=== PATIENT | female | born 1965 | race Caucasian/White ===

== ENCOUNTER 2016-02-26 21:17 | Emergency (ER) | payer MEDICAID ==
--- NOTE | 2016-02-26 21:48 | Emergency Department Record ---
History of Present Illness - General Chief Complaint: Shortness of breath Stated Complaint: COUGH, CONGESTION LUANA Time Seen by Provider: 02/26/16 21:43 Source: Patient Mode of Arrival: Ambulatory Limitations: No limitations - History of Present Illness Initial Comments: 50 yo female presents to ED with a CC of cough and congestion symptoms for the past several days. Patient reports recent sinus congestion symptoms, and was started on Augmentin 2-3 days ago. Patient reports intermittent fevers, chills , and body aches. Patient denies health problems at her baseline. MD Complaint: Cough Onset/Timin -: Days(s) Severity: Moderate Severity scale (1-10): 5 Quality: Dull Consistency: Constant Improves With: Nothing Worsens With: Nothing Context: Recent illness Associated Symptoms: Fever Treatments Prior to Arrival: None - Related Data Home Oxygen Therapy: No Home Medications Medication Instructions Recorded Confirmed Last Taken Bupropion HCl 150 mg PO DAILY 10/18/13 02/26/16 Unknown Bupropion HCl [Bupropion Xl] 300 mg PO DAILY 10/18/13 02/26/16 Unknown Fluoxetine HCl [Fluoxetine HCl] 30 mg PO DAILY 10/18/13 02/26/16 Unknown Pantoprazole Sodium [Protonix] 40 mg PO DAILY 10/18/13 02/26/16 Unknown Zolpidem Tartrate [Zolpidem 10 mg PO QHS 10/18/13 02/26/16 Unknown Tartrate] Melatonin 5 mg PO QHS tab 09/08/15 02/26/16 Unknown Allergies Allergy/AdvReac Type Severity Reaction Status Date / Time Sulfa (Sulfonamide Allergy Intermediate HIVES Unverified 02/23/16 13:11 Antibiotics) hydromorphone HCl AdvReac Intermediate NAUSEA AND Unverified 02/23/16 13:11 [From Dilaudid] VOMITING Travel Screening - Travel/Exposure Within Last 30 Days Have you traveled within the last 30 days?: No Review of Systems Constitutional: Reports: Chills, Fever, Malaise, Weakness. Denies: Night sweats Eyes: Denies: Eye discharge, Eye pain ENT: Reports: Congestion. Denies: Ear pain, Epistaxis Respiratory: Reports: Cough. Denies: Dyspnea, Stridor Cardiovascular: Denies: Chest pain, Dyspnea on exertion Endocrine: Denies: Fatigue, Heat or cold intolerance Gastrointestinal: Denies: Abdominal pain, Nausea, Vomiting Genitourinary: Denies: Dysuria, Frequency, Hematuria, Incontinence Musculoskeletal: Reports: Myalgia. Denies: Arthralgia, Back pain, Gout Skin: Denies: Bruising, Change in color Neurological: Denies: Abnormal gait, Confusion, Headache, Seizure Psychiatric: Denies: Anxiety Hematological/Lymphatic: Denies: Anemia, Blood Clots Past Medical History - SOCIAL HISTORY Smoking Status: Never smoker Alcohol Use: None Drug Use: None - RESPIRATORY Hx Respiratory Disorders: No - CARDIOVASCULAR Hx Cardio Disorders: No - NEURO Hx Neuro Disorders: Yes Hx Dizziness: Yes Hx Headaches: Yes (migraines) - GI Hx GI Disorders: No - Hx Genitourinary Disorders: No - ENDOCRINE Hx Endocrine Disorders: No - MUSCULOSKELETAL Hx Musculoskeletal Disorders: No - PSYCH Hx Psych Problems: Yes Hx Anxiety: Yes Hx Depression: Yes - HEMATOLOGY/ONCOLOGY Hx Hematology/Oncology Disorders: No Family Medical History Any Significant Family History?: No Physical Exam - General General Appearance: Alert, Oriented x3, Cooperative, No acute distress Limitations: No limitations - Head Head exam: Atraumatic, Normocephalic, Normal inspection Head exam detail: negative: Abrasion, Contusion, Schneider's sign, General tenderness, Hematoma, Laceration - Eye Eye exam: Normal appearance. negative: Conjunctival injection, Periorbital swelling, Periorbital tenderness, Scleral icterus - ENT Ear exam: negative: Auricular hematoma, Auricular trauma Nasal Exam: negative: Active bleeding, Discharge, Dried blood, Foreign body Mouth exam: negative: Drooling, Laceration, Muffled voice, Tongue elevation - Neck Neck exam: Normal inspection. negative: Meningismus, Tenderness - Respiratory Respiratory exam: Normal lung sounds bilaterally. negative: Respiratory distress, Rhonchi, Stridor, Wheezes - Cardiovascular Cardiovascular Exam: Regular rate, Normal rhythm, Normal heart sounds - GI/Abdominal GI/Abdominal exam: Soft. negative: Pulsatile mass, Rebound, Rigid, Tenderness - Rectal Rectal exam: Deferred - exam: Deferred - Extremities Extremities exam: Normal inspection. negative: Calf tenderness, Pedal edema, Tenderness - Back Back exam: Reports: Normal inspection. Denies: CVA tenderness (R), CVA tenderness (L) - Neurological Neurological exam: Alert, Normal gait, Oriented X3 - Psychiatric Psychiatric exam: Normal affect, Normal mood - Skin Skin exam: Normal color. negative: Abrasion Type of lesion: negative: abrasion Course Vital Signs 02/26/16 21:25 Temperature 97.8 F Pulse Rate 75 Respiratory 18 Rate Blood Pressure 150/97 Pulse Ox 95 - Reevaluation(s) Reevaluation #1: 02/26/16 22:14 CXR: No acute process Influenza is negative. Patient and her significant other were updated on all results, will administer Toradol IM for the patient's body aches. Patient was encouraged to continue the Augmentin that she is taking and to take Motrin 600 mg every 6 hours for her body aches. Patient appears stable for discharge at this time. Disposition Disposition: Discharge Clinical Impression: Upper respiratory tract infection Qualifiers: URI type: unspecified viral URI Qualified Code(s): J06.9 - Acute upper respiratory infection, unspecified; B97.89 - Other viral agents as the cause of diseases classified elsewhere Disposition: Home, Self-Care Condition: (2) Stable Instructions: Upper Respiratory Infection (ED) Additional Instructions: Return to ED if your symptoms worsen or if you have any concerns. Follow-up with your family doctor in 3-5 days as directed. Forms: Patient Portal Access Time of Disposition: :17
[2016-02-26 22:02] LABS: INFLUENZA A NEGATIVE (NEGATIVE); INFLUENZA B NEGATIVE (NEGATIVE)
[2016-02-26] MEDS ORDERED: KETOROLAC 60 MG/2 ML VIAL IM STA (22:13)
--- NOTE | 2016-03-01 08:33 | RADIOLOGY REPORT ---
EXAM: CHEST, TWO VIEWS HISTORY: FEVER, ACUTE NONPRODUCTIVE COUGH, RIGHT SIDE CHEST PAIN. TECHNIQUE: Two views of the chest were obtained. Comparison: Chest x-ray 07/20/07. FINDINGS: Fine linear scar left base. The lungs are clear. The cardiomediastinal silhouette, diaphragm, and osseous structures are unremarkable for age. IMPRESSION: NEGATIVE CHEST EXAMINATION. JOB NUMBER: [id number] MTDD
== END 2016-02-26 22:32 | disposition home or self-care (01) ==
LOC: ER 21:17
DX: J06.9 Acute upper respiratory infection, unspecified (principal); B97.89 Other viral agents as the cause of diseases classified elsewhere; R06.02 Shortness of breath; R05 Cough; R52 Pain, unspecified
CPT/HCPCS: 71020; 87400; 96372; 99283; 99284; J1885

== ENCOUNTER 2016-03-02 17:27 | Emergency (ER) | payer MEDICAID ==
--- NOTE | 2016-03-02 17:59 | Emergency Department Record ---
History of Present Illness - General Chief Complaint: Difficulty Breathing Stated Complaint: LUANA,FAINT Time Seen by Provider: 03/02/16 17:51 Source: Patient, RN notes reviewed Mode of Arrival: Wheelchair - History of Present Illness Initial Comments: cough and short of breath worse than 3 days ago and she is on augmentin BID for three days and no fever and she has chilles. patient seen here three days ago and chest xray neg and started on augmentin , influ neg. MD Complaint: Cough Onset/Timin -: Days(s) Severity: Moderate Improves With: Nothing Worsens With: Nothing Associated Symptoms: Cough Treatments Prior to Arrival: Other - Related Data Home Oxygen Therapy: No Home Medications Medication Instructions Recorded Confirmed Last Taken Bupropion HCl 150 mg PO DAILY 10/18/13 03/02/16 03/02/16 Bupropion HCl [Bupropion Xl] 300 mg PO DAILY 10/18/13 03/02/16 03/02/16 Fluoxetine HCl [Fluoxetine HCl] 30 mg PO DAILY 10/18/13 03/02/16 03/02/16 Pantoprazole Sodium [Protonix] 40 mg PO DAILY 10/18/13 03/02/16 03/02/16 Zolpidem Tartrate [Zolpidem 10 mg PO QHS 10/18/13 03/02/16 03/02/16 Tartrate] Melatonin 5 mg PO QHS tab 09/08/15 03/02/16 03/02/16 Previous Rx's Medication Instructions Recorded Albuterol Sulfate [Proair Hfa] 1 - 2 puff IH .EVERY 4-6 HOURS PRN 03/02/16 #1 inhaler Allergies Allergy/AdvReac Type Severity Reaction Status Date / Time Sulfa (Sulfonamide Allergy Intermediate HIVES Verified 03/02/16 17:41 Antibiotics) hydromorphone HCl AdvReac Intermediate NAUSEA AND Verified 03/02/16 17:41 [From Dilaudid] VOMITING Travel Screening - Travel/Exposure Within Last 30 Days Have you traveled within the last 30 days?: No Review of Systems Reviewed: No additional complaints except as noted below Constitutional: Reports: As per HPI, Chills. Denies: Fever, Malaise, Night sweats, Weakness, Weight change Eyes: Reports: As per HPI. Denies: Eye discharge, Eye pain, Photophobia, Vision change ENT: Reports: As per HPI, Congestion. Denies: Dental pain, Ear pain, Epistaxis , Hearing loss, Throat pain Respiratory: Reports: As per HPI, Cough. Denies: Dyspnea, Hemoptysis, Stridor, Wheezes Cardiovascular: Reports: As per HPI. Denies: Arrhythmia, Chest pain, Dyspnea on exertion, Edema, Murmurs, Orthopnea, Palpitations, Paroxysmal nocturnal dyspnea, Rheumatic Fever, Syncope Endocrine: Reports: As per HPI. Denies: Fatigue, Heat or cold intolerance, Polydipsia, Polyuria Gastrointestinal: Reports: As per HPI. Denies: Abdominal pain, Constipation, Diarrhea, Hematemesis, Hematochezia, Melena, Nausea, Vomiting Genitourinary: Reports: As per HPI. Denies: Abnormal menses, Discharge, Dyspareunia, Dysuria, Frequency, Hematuria, Incontinence, Retention, Urgency Musculoskeletal: Reports: As per HPI. Denies: Arthralgia, Back pain, Gout, Joint swelling, Myalgia, Neck pain Skin: Reports: As per HPI. Denies: Bruising, Change in color, Change in hair/ nails, Lesions, Pruritus, Rash Neurological: Reports: As per HPI. Denies: Abnormal gait, Confusion, Headache, Numbness, Paresthesias, Seizure, Tingling, Tremors, Vertigo, Weakness Psychiatric: Reports: As per HPI. Denies: Anxiety, Auditory hallucinations, Depression, Homicidal thoughts, Suicidal thoughts, Visual hallucinations Hematological/Lymphatic: Reports: As per HPI. Denies: Anemia, Blood Clots, Easy bleeding, Easy bruising, Swollen glands Past Medical History - SOCIAL HISTORY Smoking Status: Never smoker Alcohol Use: None Drug Use: None - RESPIRATORY Hx Respiratory Disorders: Yes Hx Bronchitis: Yes Hx Pneumonia: Yes - CARDIOVASCULAR Hx Cardio Disorders: No - NEURO Hx Neuro Disorders: Yes Hx Dizziness: Yes Hx Headaches: Yes (migraines) - GI Hx GI Disorders: No - Hx Genitourinary Disorders: No - ENDOCRINE Hx Endocrine Disorders: No - MUSCULOSKELETAL Hx Musculoskeletal Disorders: No - PSYCH Hx Psych Problems: Yes Hx Anxiety: Yes Hx Depression: Yes - HEMATOLOGY/ONCOLOGY Hx Hematology/Oncology Disorders: No Family Medical History Any Significant Family History?: No Physical Exam - General General Appearance: Alert, Oriented x3, Cooperative, No acute distress - Head Head exam: Normal inspection - Eye Eye exam: Normal appearance, PERRL Pupils: Normal accommodation - ENT ENT exam: Normal exam, Mucous membranes moist, Normal external ear exam, Normal orophraynx, TM's normal bilaterally Ear exam: Normal external inspection. negative: External canal tenderness Nasal Exam: Normal inspection. negative: Discharge, Sinus tenderness Mouth exam: Normal external inspection, Tongue normal Teeth exam: Normal inspection. negative: Dental caries Throat exam: Normal inspection. negative: Tonsillar erythema, Tonsillar exudate - Neck Neck exam: Normal inspection, Full ROM. negative: Tenderness - Respiratory Respiratory exam: Normal lung sounds bilaterally, Other (wheezey cough). negative: Respiratory distress - Cardiovascular Cardiovascular Exam: Regular rate, Normal rhythm, Normal heart sounds - GI/Abdominal GI/Abdominal exam: Soft, Normal bowel sounds. negative: Tenderness - Rectal Rectal exam: Deferred - exam: Deferred - Extremities Extremities exam: Normal inspection, Full ROM, Normal capillary refill. negative: Tenderness - Back Back exam: Reports: Normal inspection, Full ROM. Denies: Muscle spasm, Rash noted, Tenderness - Neurological Neurological exam: Alert, Normal gait, Oriented X3, Reflexes normal - Psychiatric Psychiatric exam: Normal affect, Normal mood - Skin Skin exam: Dry, Intact, Normal color, Warm Course Vital Signs 03/02/16 17:37 Temperature 97.8 F Pulse Rate 76 Respiratory 20 Rate Blood Pressure 144/88 Pulse Ox 95 Medical Decision Making - Data Complexity MDM Data: Labs Ordered and/or Reviewed, X-Ray Ordered and/or Reviewed (neg chestnxray) - Lab Data Result diagrams: 03/02/16 17:50 03/02/16 17:50 Disposition Clinical Impression: Bronchitis Disposition: Home, Self-Care Condition: (1) Good Instructions: Acute Bronchitis (ED) Additional Instructions: robitussin DM 10 ml every 4 hours Prescriptions: Albuterol Sulfate [Proair Hfa] 1 - 2 puff IH .EVERY 4-6 HOURS PRN #1 inhaler PRN Reason: Difficulty In Breathing Forms: Patient Portal Access Time of Disposition: 18:52
[2016-03-02] MEDS ORDERED: 0.9 % SODIUM CHLORIDE 1,000 ML BAG IV ONE (18:01)
[2016-03-02 18:11] LABS: BASO % 0.2 % (0-6); EOS % 3.4 % (0-6); GRAN % 57.4 % (47-80); HEMATOCRIT 38.9 % (35.0-47.0); HEMOGLOBIN 12.6 gm/dl (11.6-16.0); LYMPH % 31.6 % (16-45); MEAN CELL VOLUME 86.4 fl (81-97); MEAN CORPUSCULAR HGB CONC 32.4 g/dl (32-36); MEAN PLATELET VOLUME 9.6 fl (7.4-10.4); MONO % 7.4 % (0-9); PLATELET COUNT 359 K/uL (130-400); RED CELL DISTRIBUTION WIDTH 14.3 % (11.5-14.5); WHITE BLOOD COUNT W/O DIFF 11.1 K/uL (4.2-12.2)
[2016-03-02 18:26] LABS: INFLUENZA A NEGATIVE (NEGATIVE); INFLUENZA B NEGATIVE (NEGATIVE)
[2016-03-02 18:27] LABS: ANION GAP 15.4 (7-16); BLOOD UREA NITROGEN 13 mg/dL (7-17); CARBON DIOXIDE 23.6 mmol/L (22-30); CREATININE 0.7 mg/dL (0.52-1.04); EST GLOMERULAR FILTRATION RATE > 60 ml/min; GLUCOSE,RANDOM 87 mg/dL (70-110)
--- NOTE | 2016-03-02 18:58 | Emergency Department Record ---
History of Present Illness - General Chief Complaint: Difficulty Breathing Stated Complaint: LUANA,FAINT Time Seen by Provider: 03/02/16 17:51 Source: Patient, RN notes reviewed Mode of Arrival: Wheelchair - History of Present Illness Onset/Timin -: Days(s) Severity: Moderate Improves With: Nothing Worsens With: Nothing Associated Symptoms: Cough Treatments Prior to Arrival: Other - Related Data Home Oxygen Therapy: No Home Medications Medication Instructions Recorded Confirmed Last Taken Bupropion HCl 150 mg PO DAILY 10/18/13 03/02/16 03/02/16 Bupropion HCl [Bupropion Xl] 300 mg PO DAILY 10/18/13 03/02/16 03/02/16 Fluoxetine HCl [Fluoxetine HCl] 30 mg PO DAILY 10/18/13 03/02/16 03/02/16 Pantoprazole Sodium [Protonix] 40 mg PO DAILY 10/18/13 03/02/16 03/02/16 Zolpidem Tartrate [Zolpidem 10 mg PO QHS 10/18/13 03/02/16 03/02/16 Tartrate] Melatonin 5 mg PO QHS tab 09/08/15 03/02/16 03/02/16 Previous Rx's Medication Instructions Recorded Albuterol Sulfate [Proair Hfa] 1 - 2 puff IH .EVERY 4-6 HOURS PRN 03/02/16 #1 inhaler Azithromycin 250 mg PO DAILY #6 tablet 03/02/16 Allergies Allergy/AdvReac Type Severity Reaction Status Date / Time Sulfa (Sulfonamide Allergy Intermediate HIVES Verified 03/02/16 17:41 Antibiotics) hydromorphone HCl AdvReac Intermediate NAUSEA AND Verified 03/02/16 17:41 [From Dilaudid] VOMITING Travel Screening - Travel/Exposure Within Last 30 Days Have you traveled within the last 30 days?: No Review of Systems Constitutional: Reports: As per HPI, Chills. Denies: Fever, Malaise, Night sweats, Weakness, Weight change Eyes: Reports: As per HPI. Denies: Eye discharge, Eye pain, Photophobia, Vision change ENT: Reports: As per HPI, Congestion. Denies: Dental pain, Ear pain, Epistaxis , Hearing loss, Throat pain Respiratory: Reports: As per HPI, Cough. Denies: Dyspnea, Hemoptysis, Stridor, Wheezes Cardiovascular: Reports: As per HPI. Denies: Arrhythmia, Chest pain, Dyspnea on exertion, Edema, Murmurs, Orthopnea, Palpitations, Paroxysmal nocturnal dyspnea, Rheumatic Fever, Syncope Endocrine: Reports: As per HPI. Denies: Fatigue, Heat or cold intolerance, Polydipsia, Polyuria Gastrointestinal: Reports: As per HPI. Denies: Abdominal pain, Constipation, Diarrhea, Hematemesis, Hematochezia, Melena, Nausea, Vomiting Genitourinary: Reports: As per HPI. Denies: Abnormal menses, Discharge, Dyspareunia, Dysuria, Frequency, Hematuria, Incontinence, Retention, Urgency Musculoskeletal: Reports: As per HPI. Denies: Arthralgia, Back pain, Gout, Joint swelling, Myalgia, Neck pain Skin: Reports: As per HPI. Denies: Bruising, Change in color, Change in hair/ nails, Lesions, Pruritus, Rash Neurological: Reports: As per HPI. Denies: Abnormal gait, Confusion, Headache, Numbness, Paresthesias, Seizure, Tingling, Tremors, Vertigo, Weakness Psychiatric: Reports: As per HPI. Denies: Anxiety, Auditory hallucinations, Depression, Homicidal thoughts, Suicidal thoughts, Visual hallucinations Hematological/Lymphatic: Reports: As per HPI. Denies: Anemia, Blood Clots, Easy bleeding, Easy bruising, Swollen glands Past Medical History - SOCIAL HISTORY Smoking Status: Never smoker Alcohol Use: None Drug Use: None - RESPIRATORY Hx Respiratory Disorders: Yes Hx Bronchitis: Yes Hx Pneumonia: Yes - CARDIOVASCULAR Hx Cardio Disorders: No - NEURO Hx Neuro Disorders: Yes Hx Dizziness: Yes Hx Headaches: Yes (migraines) - GI Hx GI Disorders: No - Hx Genitourinary Disorders: No - ENDOCRINE Hx Endocrine Disorders: No - MUSCULOSKELETAL Hx Musculoskeletal Disorders: No - PSYCH Hx Psych Problems: Yes Hx Anxiety: Yes Hx Depression: Yes - HEMATOLOGY/ONCOLOGY Hx Hematology/Oncology Disorders: No Family Medical History Any Significant Family History?: No Course Vital Signs 03/02/16 03/02/16 17:37 18:40 Temperature 97.8 F Pulse Rate 76 Pulse Rate [ 76 Pulse Ox Probe] Respiratory 20 18 Rate Blood Pressure 144/88 Blood Pressure 133/80 [Left Arm] Pulse Ox 95 98 Medical Decision Making - Lab Data Result diagrams: 03/02/16 17:50 03/02/16 17:50 Lab Results 03/02/16 03/02/1603/02/17 Range/Units 17:50 17:50 17:50 WBC 11.1 (4.2-12.2) K/uL RBC 4.50 (3.80-5.40) M/uL Hgb 12.6 (11.6-16.0) gm/dl Hct 38.9 (35.0-47.0) % MCV 86.4 (81-97) fl MCH 28.0 (27-33) pg MCHC 32.4 (32-36) g/dl RDW 14.3 (11.5-14.5) % Plt Count 359 (130-400) K/uL MPV 9.6 (7.4-10.4) fl Gran % 57.4 (47-80) % Lymphocytes % 31.6 (16-45) % Monocytes % 7.4 (0-9) % Eosinophils % 3.4 (0-6) % Basophils % 0.2 (0-6) % Sodium 139 (136-145) mmol/L Potassium 4.2 (3.5-5.1) mmol/L Chloride 100 (98-107) mmol/L Carbon Dioxide 23.6 (22-30) mmol/L Anion Gap 15.4 (7-16) BUN 13 (7-17) mg/dL Creatinine 0.7 (0.52-1.04) mg/dL Estimated GFR > 60 ml/min Random Glucose 87 (70-110) mg/dL Calcium 9.1 (8.5-10.1) mg/dL Influenza Type A Ag Negative (NEGATIVE) Influenza Type B Ag Negative (NEGATIVE) Disposition Clinical Impression: Bronchitis Disposition: Home, Self-Care Condition: (1) Good Instructions: Acute Bronchitis (ED) Additional Instructions: robitussin DM 10 ml every 4 hours Prescriptions: Azithromycin 250 mg PO DAILY #6 tablet Albuterol Sulfate [Proair Hfa] 1 - 2 puff IH .EVERY 4-6 HOURS PRN #1 inhaler PRN Reason: Difficulty In Breathing Forms: Patient Portal Access Time of Disposition: 18:58
--- NOTE | 2016-03-07 15:29 | RADIOLOGY REPORT ---
DATE: 03/02/2016. EXAM: FRONTAL AND LATERAL VIEWS OF THE CHEST. HISTORY: Cough. TECHNIQUE: Frontal and lateral views of the chest were obtained. COMPARISON: 02/26/2016 chest. FINDINGS: The heart size is normal. Scarring in the left lung base. The lungs are otherwise clear. No pneumothorax. IMPRESSION: NO ACUTE CARDIOPULMONARY PROCESS. JOB NUMBER: [id number] MTDD
== END 2016-03-02 19:24 | disposition home or self-care (01) ==
LOC: ER 17:27
DX: J20.9 Acute bronchitis, unspecified (principal); R06.00 Dyspnea, unspecified; R55 Syncope and collapse
CPT/HCPCS: 71020; 80048; 85025; 87400; 96360; 99284; J7030

== ENCOUNTER 2016-04-19 16:00 | Emergency (ER) | payer MEDICAID ==
--- NOTE | 2016-04-19 16:37 | Emergency Department Record ---
History of Present Illness - General Chief complaint: Vomiting Stated complaint: VOMITING Time Seen by Provider: 04/19/16 16:30 Source: Patient Mode of Arrival: Ambulatory Limitations: No limitations - History of Present Illness Initial comments: The patient is here due to an 8 hour hx of nausea, vomiting, and epigastric AP. The pain does radiate to the back at times. She denies any diarrhea or any lower AP. 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 The patient states she has had similar issues many times in the past just like this. She denies any lower abdominal pain and non one else is ill at home. She denies any CP, SOB, LUANA or sweating with it. The patient states since she was very little one she gets vomiting she is unable to stop. Her was ill with a similar illness a few days ago. complaint: Abdominal pain, Nausea, Vomiting Onset/Timin -: Hour(s) Description of Vomiting: Bilious Location: Epigastric Radiation: Back Severity scale (1-10): 8 Quality: Constant Improves with: None Worsens with: None Associated Symptoms: Fever/chills, Nausea/vomiting, Weakness - Related Data Home Medications Medication Instructions Recorded Confirmed Last Taken Bupropion HCl 150 mg PO DAILY 10/18/13 03/02/16 03/02/16 Bupropion HCl [Bupropion Xl] 300 mg PO DAILY 10/18/13 03/02/16 03/02/16 Fluoxetine HCl [Fluoxetine HCl] 30 mg PO DAILY 10/18/13 03/02/16 03/02/16 Pantoprazole Sodium [Protonix] 40 mg PO DAILY 10/18/13 03/02/16 03/02/16 Zolpidem Tartrate [Zolpidem 10 mg PO QHS 10/18/13 03/02/16 03/02/16 Tartrate] Melatonin 5 mg PO QHS tab 09/08/15 03/02/16 03/02/16 Previous Rx's Medication Instructions Recorded Albuterol Sulfate [Proair Hfa] 1 - 2 puff IH .EVERY 4-6 HOURS PRN 03/02/16 #1 inhaler Azithromycin 250 mg PO DAILY #6 tablet 03/02/16 Ondansetron [Zofran Odt] 4 mg SL .Q4-6H PRN #12 tab.rapdis 04/19/16 Sucralfate [Carafate] 1 gm PO QID #28 tablet 04/19/16 Allergies Allergy/AdvReac Type Severity Reaction Status Date / Time Sulfa (Sulfonamide Allergy Intermediate HIVES Verified 03/02/16 17:41 Antibiotics) hydromorphone HCl AdvReac Intermediate NAUSEA AND Verified 03/02/16 17:41 [From Dilaudid] VOMITING Travel Screening - Travel/Exposure Within Last 30 Days Have you traveled within the last 30 days?: No - Travel/Exposure Within Last Year Have you traveled outside the [place] in the last year?: No - Additonal Travel Details Have you been exposed to anyone with a communicable illness?: No - Travel Symptoms Symptom Screening: None Review of Systems Constitutional: Denies: Chills, Fever Eyes: Denies: Eye discharge ENT: Denies: Congestion Respiratory: Denies: Cough, Dyspnea Cardiovascular: Denies: Arrhythmia, Chest pain Past Medical History - SOCIAL HISTORY Smoking Status: Never smoker Alcohol Use: None Drug Use: None - RESPIRATORY Hx Respiratory Disorders: Yes Hx Bronchitis: Yes Hx Pneumonia: Yes - CARDIOVASCULAR Hx Cardio Disorders: No - NEURO Hx Neuro Disorders: Yes Hx Dizziness: Yes Hx Headaches: Yes (migraines) - GI Hx GI Disorders: No - Hx Genitourinary Disorders: No - ENDOCRINE Hx Endocrine Disorders: No - MUSCULOSKELETAL Hx Musculoskeletal Disorders: No - PSYCH Hx Psych Problems: Yes Hx Anxiety: Yes Hx Depression: Yes - HEMATOLOGY/ONCOLOGY Hx Hematology/Oncology Disorders: No Family Medical History Any Significant Family History?: No Physical Exam - General General Appearance: Alert, Oriented x3, Cooperative, No acute distress - Head Head exam: Atraumatic, Normocephalic, Normal inspection - Eye Eye exam: Normal appearance, PERRL - ENT Throat exam: Normal inspection. negative: Tonsillar erythema, Tonsillar exudate - Neck Neck exam: Normal inspection, Full ROM. negative: Tenderness - Respiratory Respiratory exam: Normal lung sounds bilaterally. negative: Respiratory distress - Cardiovascular Cardiovascular Exam: Regular rate, Normal rhythm, Normal heart sounds - GI/Abdominal GI/Abdominal exam: Soft, Tenderness (There is diffuse upper abdominal tenderness.). negative: Distended, Organomegaly, Rebound, Rigid - Extremities Extremities exam: Normal inspection, Full ROM, Normal capillary refill. negative: Tenderness Course Vital Signs 04/19/16 16:28 Temperature 98.4 F Pulse Rate [ 81 Pulse Ox Probe] Respiratory 14 Rate Blood Pressure 147/73 [Right Arm] Pulse Ox 94 L - Reevaluation(s) Reevaluation #1: The patient is doing much better at this time. Her nausea is much better also. 04/19/16 17:30 Reevaluation #2: The patient is doing very well and feels much better. She denies any significant pain at this time. I explained to her that we will treat her with Zofran at home and Carafate for a week. She is to return to the ER for any worsening symptoms. 04/19/16 18:00 Medical Decision Making - Data Complexity MDM Data: Labs Ordered and/or Reviewed, X-Ray Ordered and/or Reviewed - Lab Data Result diagrams: 04/19/16 16:45 04/19/16 16:45 - Radiology Data Radiology results: Report reviewed (CT: No acute abnormality per Rad.) Disposition Disposition: Discharge Clinical Impression: Vomiting Qualifiers: Vomiting type: unspecified Vomiting Intractability: non-intractable Nausea presence: with nausea Qualified Code(s): R11.2 - Nausea with vomiting, unspecified Disposition: Home, Self-Care Condition: (1) Good Instructions: Acute Nausea and Vomiting (ED) Additional Instructions: Please only consume clear liquids for 6 hours then slowly advance your diet. Please use the Zofran if needed and take the Carafate as directed. Please return to the ER for any increased pain, fever, or vomiting. Prescriptions: Sucralfate [Carafate] 1 gm PO QID #28 tablet Ondansetron [Zofran Odt] 4 mg SL .Q4-6H PRN #12 tab.rapdis PRN Reason: Nausea Forms: Patient Portal Access Time of Disposition: 18:05
[2016-04-19] MEDS ORDERED: ONDANSETRON HCL IV 4 MG/2 ML VIAL IV ONE (16:40)
[2016-04-19] MEDS ORDERED: HYDROMORPHONE HCL 1 MG/ML CPJ IVP ONE (16:40)
[2016-04-19] MEDS ORDERED: 0.9 % SODIUM CHLORIDE 1,000 ML BAG IV ONE (16:40)
[2016-04-19 17:03] LABS: BASO % 0.1 % (0-6); EOS % 0.3 % (0-6); HEMATOCRIT 41.8 % (35.0-47.0); HEMOGLOBIN 13.5 gm/dl (11.6-16.0); LYMPH % 3.1 % (16-45); MEAN CELL VOLUME 86.7 fl (81-97); MEAN CORPUSCULAR HGB CONC 32.3 g/dl (32-36); MEAN PLATELET VOLUME 9.5 fl (7.4-10.4); MONO % 3.9 % (0-9); PLATELET COUNT 293 K/uL (130-400); RED BLOOD COUNT 4.82 M/uL (3.80-5.40); RED CELL DISTRIBUTION WIDTH 16.3 % (11.5-14.5); WHITE BLOOD COUNT W/O DIFF 11.4 K/uL (4.2-12.2)
[2016-04-19 17:14] LABS: ALBUMIN 4.3 gm/dL (3.5-5.0); ALKALINE PHOSPHATASE 108 U/L (38-126); ALT/SGPT 32 U/L (9-52); ANION GAP 12.3 (7-16); AST/SGOT 22 U/L (14-36); BILIRUBIN,TOTAL 0.58 mg/dL (0.2-1.3); BLOOD UREA NITROGEN 15 mg/dL (7-17); CARBON DIOXIDE 23.7 mmol/L (22-30); CREATININE 0.8 mg/dL (0.52-1.04); EST GLOMERULAR FILTRATION RATE > 60 ml/min; GLUCOSE,RANDOM 132 mg/dL (70-110); LIPASE 65 U/L (23-300); TOTAL PROTEIN 7.5 gm/dL (6.3-8.2)
[2016-04-19 17:16] LABS: URINE APPEARANCE CLEAR; URINE BILIRUBIN NEGATIVE (NEGATIVE); URINE BLOOD NEGATIVE (NEGATIVE); URINE COLOR YELLOW; URINE GLUCOSE (UA) NEGATIVE (NEGATIVE); URINE KETONE NEGATIVE (NEGATIVE); URINE LEUKOCYTE ESTERASE NEGATIVE (NEGATIVE); URINE NITRITE NEGATIVE (NEGATIVE); URINE PROTEIN NEGATIVE (NEGATIVE); URINE UROBILINOGEN 0.2 E.U./dL (0.20 - 1.00)
[2016-04-19] MEDS ORDERED: KETOROLAC 30 MG/ML VIAL IVP ONE (17:27)
[2016-04-19] MEDS ORDERED: MAGNESIUM HYDROXIDE/AL HYDROX 10.0001 ML, LIDOCAINE VISC 2% 200 MG, PHENOBARB/HYOSCY/AT... PO ONE ×3 (17:43)
--- NOTE | 2016-04-24 13:35 | CT SCAN REPORT ---
EXAM: CT OF THE ABDOMEN AND PELVIS WITHOUT CONTRAST HISTORY: SEVERE VOMITING. TECHNIQUE: Sequential axial images were obtained from the diaphragms through the ischiorectal fossa without intravenous or oral contrast administration. FINDINGS: The visualized lung bases appear normal. There is a large lipomatous lesion along the left lateral chest wall. The liver appears normal. The gallbladder has been surgically removed. The pancreas and spleen appear normal. The adrenal glands and kidneys appear normal. There are no gross abnormalities within the stomach. The small bowel appears normal. The colon appears normal. The appendix is visualized and appears normal. The urinary bladder appears normal. The osseous structures are normal. IMPRESSION: 1. LARGE LIPOMATOUS LESION ALONG THE LEFT LATERAL CHEST WALL. THIS MEASURES APPROXIMATELY 7.8 CM X 6.2 CM. 2. NO ACUTE ABDOMINAL OR PELVIC DISEASE PROCESS. JOB NUMBER: [id number] MTDD
== END 2016-04-19 18:28 | disposition home or self-care (01) ==
LOC: ER 16:00
DX: R11.2 Nausea with vomiting, unspecified (principal); R10.13 Epigastric pain
CPT/HCPCS: 99284 ×2; 96374; 96375; 83690; 80076; 80048; 81003; 85027; 74176; J1885; J2405; J3490; J7030

== ENCOUNTER 2016-06-25 01:36 | Emergency (ER) | payer MEDICAID ==
[2016-06-25] MEDS ORDERED: ONDANSETRON HCL IV 4 MG/2 ML VIAL IV ONE (01:55)
[2016-06-25] MEDS ORDERED: 0.9 % SODIUM CHLORIDE 1,000 ML BAG IV ONE (01:55)
--- NOTE | 2016-06-25 01:57 | Emergency Department Record ---
History of Present Illness - General Chief complaint: Vomiting Stated complaint: VOMITING Time Seen by Provider: 06/25/16 01:55 Source: Patient, Family () Mode of Arrival: Ambulatory - History of Present Illness Initial comments: Vomiting 5-6 times since 6 pm tonight, nonbloody, with one episode of diarrhea. She ate rotisserie chicken for dinner last night. Has a low grade fever. Her upper abdomen is hurting as well. MD complaint: Abdominal pain, Diarrhea, Nausea, Vomiting Onset/Timin -: Hour(s) Associated Abdominal Pain: Yes Location: Epigastric Radiation: Back Severity: Mild Severity scale (1-10): 8 Consistency: Constant Improves with: None Worsens with: None Associated Symptoms: Other - Related Data Home Medications Medication Instructions Recorded Confirmed Last Taken Bupropion HCl 150 mg PO DAILY 10/18/13 06/25/16 04/18/16 Bupropion HCl [Bupropion Xl] 300 mg PO DAILY 10/18/13 06/25/16 04/18/16 Fluoxetine HCl [Fluoxetine HCl] 30 mg PO DAILY 10/18/13 06/25/16 04/18/16 Pantoprazole Sodium [Protonix] 40 mg PO DAILY 10/18/13 06/25/16 04/18/16 Zolpidem Tartrate [Zolpidem 10 mg PO QHS 10/18/13 06/25/16 04/18/16 Tartrate] Melatonin 5 mg PO QHS tab 09/08/15 06/25/16 04/18/16 Previous Rx's Medication Instructions Recorded Ondansetron [Zofran Odt] 4 mg PO Q8H #7 tab.rapdis 06/25/16 Allergies Allergy/AdvReac Type Severity Reaction Status Date / Time Sulfa (Sulfonamide Allergy Intermediate HIVES Verified 03/02/16 17:41 Antibiotics) erythromycin base Allergy NAUSEA AND Verified 06/25/16 01:53 VOMITING hydromorphone HCl AdvReac Intermediate NAUSEA AND Verified 03/02/16 17:41 [From Dilaudid] VOMITING Travel Screening - Travel/Exposure Within Last 30 Days Have you traveled within the last 30 days?: No - Travel/Exposure Within Last Year Have you traveled outside the [place] in the last year?: No - Additonal Travel Details Have you been exposed to anyone with a communicable illness?: No - Travel Symptoms Symptom Screening: None Review of Systems Reviewed: No additional complaints except as noted below Constitutional: Reports: As per HPI. Denies: Chills, Fever, Malaise, Night sweats, Weakness, Weight change Eyes: Reports: As per HPI. Denies: Eye discharge, Eye pain, Photophobia, Vision change ENT: Reports: As per HPI. Denies: Congestion, Dental pain, Ear pain, Epistaxis , Hearing loss, Throat pain Respiratory: Reports: As per HPI. Denies: Cough, Dyspnea, Hemoptysis, Stridor, Wheezes Cardiovascular: Reports: As per HPI. Denies: Arrhythmia, Chest pain, Dyspnea on exertion, Edema, Murmurs, Orthopnea, Palpitations, Paroxysmal nocturnal dyspnea, Rheumatic Fever, Syncope Endocrine: Reports: As per HPI. Denies: Fatigue, Heat or cold intolerance, Polydipsia, Polyuria Gastrointestinal: Reports: As per HPI. Denies: Abdominal pain, Constipation, Diarrhea, Hematemesis, Hematochezia, Melena, Nausea, Vomiting Genitourinary: Reports: As per HPI. Denies: Abnormal menses, Discharge, Dyspareunia, Dysuria, Frequency, Hematuria, Incontinence, Retention, Urgency Musculoskeletal: Reports: As per HPI. Denies: Arthralgia, Back pain, Gout, Joint swelling, Myalgia, Neck pain Skin: Reports: As per HPI. Denies: Bruising, Change in color, Change in hair/ nails, Lesions, Pruritus, Rash Neurological: Reports: As per HPI. Denies: Abnormal gait, Confusion, Headache, Numbness, Paresthesias, Seizure, Tingling, Tremors, Vertigo, Weakness Psychiatric: Reports: As per HPI. Denies: Anxiety, Auditory hallucinations, Depression, Homicidal thoughts, Suicidal thoughts, Visual hallucinations Hematological/Lymphatic: Reports: As per HPI. Denies: Anemia, Blood Clots, Easy bleeding, Easy bruising, Swollen glands Past Medical History - SOCIAL HISTORY Smoking Status: Never smoker Alcohol Use: None Drug Use: None - RESPIRATORY Hx Respiratory Disorders: Yes Hx Bronchitis: Yes Hx Pneumonia: Yes - CARDIOVASCULAR Hx Cardio Disorders: No - NEURO Hx Neuro Disorders: Yes Hx Dizziness: Yes Hx Headaches: Yes (migraines) - GI Hx GI Disorders: No - Hx Genitourinary Disorders: No - ENDOCRINE Hx Endocrine Disorders: No - MUSCULOSKELETAL Hx Musculoskeletal Disorders: No - PSYCH Hx Psych Problems: Yes Hx Anxiety: Yes Hx Depression: Yes - HEMATOLOGY/ONCOLOGY Hx Hematology/Oncology Disorders: No Family Medical History Any Significant Family History?: No Physical Exam - General General Appearance: Alert, Oriented x3, Cooperative, Moderate distress (arrived and vomited, now feeling improved but has epigastric pain) - Head Head exam: Normal inspection - Eye Eye exam: Normal appearance, PERRL Pupils: Normal accommodation - ENT ENT exam: Normal exam, Mucous membranes dry, Normal external ear exam, Normal orophraynx, TM's normal bilaterally Ear exam: Normal external inspection. negative: External canal tenderness Nasal Exam: Normal inspection. negative: Discharge, Sinus tenderness Mouth exam: Normal external inspection, Tongue normal Teeth exam: Normal inspection. negative: Dental caries Throat exam: Normal inspection. negative: Tonsillar erythema, Tonsillar exudate - Neck Neck exam: Normal inspection, Full ROM. negative: Lymphadenopathy, Meningismus , Tenderness - Respiratory Respiratory exam: Normal lung sounds bilaterally. negative: Chest wall tenderness, Respiratory distress - Cardiovascular Cardiovascular Exam: Regular rate, Normal rhythm, Normal heart sounds - GI/Abdominal GI/Abdominal exam: Soft, Normal bowel sounds, Tenderness (epigastric) - Rectal Rectal exam: Deferred - exam: Deferred - Extremities Extremities exam: Normal inspection, Full ROM, Normal capillary refill. negative: Calf tenderness, Pedal edema, Tenderness - Back Back exam: Reports: Normal inspection, Full ROM. Denies: Muscle spasm, Rash noted, Tenderness - Neurological Neurological exam: Alert, Normal gait, Oriented X3, Reflexes normal - Psychiatric Psychiatric exam: Normal affect, Normal mood - Skin Skin exam: Dry, Intact, Normal color, Warm Course Vital Signs 06/25/16 01:39 Temperature 99.8 F H Pulse Rate 71 Respiratory 24 Rate Blood Pressure 160/101 Pulse Ox 95 - Reevaluation(s) Reevaluation #1: Patient is feeling much better. No further vomiting. She states her GERD is acting up and wishes a GI cocktail. UA is contaminated, so will repeat a clean catch UA. 06/25/16 04:57 Reevaluation #2: 06/25/16 05:27 Feeling much better after GI cocktail. Ready for DC home. Medical Decision Making - Management Options MDM Management: No Additional Work-up Planned - Data Complexity MDM Data: Labs Ordered and/or Reviewed (Repeat UA neg except for traced protein. ) - Lab Data Result diagrams: 06/25/16 01:50 06/25/16 01:50 Disposition Disposition: Discharge Clinical Impression: Nausea vomiting and diarrhea, Chronic GERD, Dehydration Disposition: Home, Self-Care Condition: (1) Good Instructions: Traveler's Diarrhea (ED), Gastroenteritis (ED), Acute Nausea and Vomiting (ED) Additional Instructions: Clear liquids for 24 hours and push fluids. Zofran every 8 hours as directed for nausea and vomiting. Follow up with PCP as needed. Prescriptions: Ondansetron [Zofran Odt] 4 mg PO Q8H #7 tab.[email or web address]
[2016-06-25 02:08] LABS: BASO % 0.1 % (0-6); HEMATOCRIT 42.4 % (35.0-47.0); HEMOGLOBIN 13.4 gm/dl (11.6-16.0); LYMPH % 6.3 % (16-45); MEAN CELL VOLUME 85.7 fl (81-97); MEAN CORPUSCULAR HEMOGLOBIN 27.1 pg (27-33); MEAN CORPUSCULAR HGB CONC 31.6 g/dl (32-36); MEAN PLATELET VOLUME 9.3 fl (7.4-10.4); MONO % 5.2 % (0-9); PLATELET COUNT 338 K/uL (130-400); RED BLOOD COUNT 4.95 M/uL (3.80-5.40); RED CELL DISTRIBUTION WIDTH 15.8 % (11.5-14.5); WHITE BLOOD COUNT W/O DIFF 11.6 K/uL (4.2-12.2)
[2016-06-25 02:17] LABS: ALBUMIN 4.6 gm/dL (3.5-5.0); ALKALINE PHOSPHATASE 126 U/L (38-126); ALT/SGPT 36 U/L (9-52); ANION GAP 12.5 (7-16); AST/SGOT 36 U/L (14-36); BILIRUBIN,TOTAL 0.75 mg/dL (0.2-1.3); BLOOD UREA NITROGEN 16 mg/dL (7-17); CARBON DIOXIDE 21.5 mmol/L (22-30); CREATININE 0.9 mg/dL (0.52-1.04); EST GLOMERULAR FILTRATION RATE > 60 ml/min; GLUCOSE,RANDOM 131 mg/dL (70-110); LIPASE 53 U/L (23-300); TOTAL PROTEIN 7.8 gm/dL (6.3-8.2)
[2016-06-25] MEDS ORDERED: KETOROLAC 30 MG/ML VIAL IVP ONE (02:25)
[2016-06-25 02:39] LABS: URINE APPEARANCE CLEAR; URINE BILIRUBIN NEGATIVE (NEGATIVE); URINE BLOOD NEGATIVE (NEGATIVE); URINE COLOR YELLOW; URINE GLUCOSE (UA) NEGATIVE (NEGATIVE); URINE KETONE NEGATIVE (NEGATIVE); URINE LEUKOCYTE ESTERASE TRACE (NEGATIVE); URINE NITRITE NEGATIVE (NEGATIVE); URINE PROTEIN NEGATIVE (NEGATIVE)
[2016-06-25 02:53] LABS: URINE BACTERIA 1+; URINE EPITHELIAL CELLS 16 - 20 (FEW); URINE MUCUS MODERATE
[2016-06-25] MEDS ORDERED: MAGNESIUM HYDROXIDE/AL HYDROX 30 ML, LIDOCAINE VISC 2% 200 MG PO ONE ×2 (04:59)
[2016-06-25 05:13] LABS: URINE APPEARANCE CLEAR; URINE BILIRUBIN SMALL (NEGATIVE); URINE BLOOD NEGATIVE (NEGATIVE); URINE COLOR YELLOW; URINE GLUCOSE (UA) NEGATIVE (NEGATIVE); URINE KETONE NEGATIVE (NEGATIVE); URINE LEUKOCYTE ESTERASE NEGATIVE (NEGATIVE); URINE NITRITE NEGATIVE (NEGATIVE); URINE PROTEIN TRACE (NEGATIVE)
[2016-06-25] MEDS ORDERED: ONDANSETRON 4 MG ODT TABLET SL ONE (05:25)
== END 2016-06-25 05:54 | disposition home or self-care (01) ==
LOC: ER 01:36
DX: R11.2 Nausea with vomiting, unspecified (principal); R19.7 Diarrhea, unspecified; R10.13 Epigastric pain; E86.0 Dehydration; K21.9 Gastro-esophageal reflux disease without esophagitis
CPT/HCPCS: 99284 ×2; 96374; 96375; 83690; 80076; 80048; 81001; 81003; 85027; J1885; J2405; J7030